=== PATIENT | male | born 1980 | race Caucasian/White ===

== ENCOUNTER 2019-07-03 08:03 | Day surgery (SDC) | payer MEDICAID ==
[~2019-07-03] VITALS: Ht 175.3 cm; Wt 63.0 kg
[2019-07-03 08:14] LABS: BASOPHILS 0.2 % (0-2); EOSINOPHILS 3.2 % (0-7); HEMATOCRIT 41.2 % (42.0-54.0); HEMOGLOBIN 14.2 g/dL (13.5-17.5); IMMATURE GRANULOCYTES 0.2 % (0-5); LYMPHOCYTES 28.3 % (15-50); MCH 30.9 pg (26.0-34.0); MCHC 34.5 g/dL (31.0-37.0); MCV 89.6 fL (80.0-100.0); MEAN PLATELET VOLUME 9.8 fL (7.4-10.4); MONOCYTES 5.8 % (2-11); NEUTROPHILS 62.3 % (40-80); PLATELET COUNT 231 10x3/uL (130-400); RDW 13.9 % (11.5-14.5); WBC 8.4 10x3/uL (4.8-10.8)
[2019-07-03 08:23] LABS: ANION GAP 12.4 mmol/L (8-16); CALCIUM 9.2 mg/dL (8.5-10.1); CARBON DIOXIDE 27.8 mmol/L (21.0-32.0); CREATININE - SERUM 1.4 mg/dL (0.6-1.3); POTASSIUM - SERUM 4.2 mmol/L (3.5-5.1)
[2019-07-03] MEDS ORDERED: DILAUDID2 MG PO (14:07)
--- NOTE | 2019-07-03 17:23 | NUR ---
1520-REC'D FROM RR,DROWSY,EASILY AROUSED, DENIES PAIN. IV PATENT TO LEFT HAND AT KVO. VSS. DRESSING TO RLQ CDI. AT BEDSIDE, CL IN EASY REACH.
--- NOTE | 2019-07-03 17:25 | NUR ---
1630-TOLERATED FULL LIQUID TRAY, AMBULATED TO RESTROOM, UNABLE TO URINATE AT THIS TIME. VSS. IV CONTINUE TO RUN KVO TO LEFT HAND.
--- NOTE | 2019-07-03 17:40 | NUR ---
1730-ATTEMPTED TO URINATE FOR 2ND TIME WITHOUT SUCCESS. ABD SOFT,NON DISTENDED. IV CONTINUE TO BE PATENT TO LEFT HAND.VSS.
--- NOTE | 2019-07-03 18:10 | NUR ---
CARE OF PATIENT ASSUMED FROM VIRI BHARDWAJ RN. PATIENT AWAKE, ALERT, NO COMPLAINTS EXCEPT WANTS TO GO HOME. PATIENT ATTEMPTING TO URINATE BUT UNABLE. BLADDER SCAN SHOWS 521 ML IN BLADDER. PATIENT ENCOURAGED TO WALK AROUND HALLS BUT STAY CLOSE TO ROOM AND SPOUSE IS TO WALK BESIDE, PATIENT AGREEABLE
--- NOTE | 2019-07-03 18:50 | NUR ---
PATIENT CALLS AND STATES HE VOIDED MODERATE AMOUNT IN TOILET. NOT MEASURED BUT PATIENT STATES THERE HE VOIDED A SHORT STREAM OF URINE TWICE INTO THE TOILET. LEFT HAND PIV DC'D WITH TIP INTACT, PATIETN DRESSING IN PERSONAL CLOTHING [id number] PATIENT DISCHARGED HOME VIA WHEELCHAIR TO PRIVATE VEHICLE WITH SPOUSE
--- NOTE | 2019-07-10 07:19 | OP ---
PATIENT NAME: ROLANDO GIBBONS MEDICAL RECORD: [id number] :84 LOCATION:D.OPS ADMISSION DATE: SURGEON: LONDON BUSTAMANTE MD DATE OF OPERATION: 07/03/2019 PREOPERATIVE DIAGNOSES: 1. Right inguinal hernia. 2. Gout. POSTOPERATIVE DIAGNOSES: 1. Right inguinal hernia. 2. Gout. PROCEDURE: Right inguinal hernia repair with medium PHS mesh. SURGEON: London Bustamante MD REPORT OF PROCEDURE: The patient's right groin was prepped and draped in sterile fashion. An oblique incision was made above the inguinal ligament. Electrocautery was used to dissect through the subcutaneous tissues down to the external oblique fascia. This fascia was opened up to the external ring using electrocautery. The spermatic cord was elevated and a Phoenix was placed around it. The ilioinguinal nerve was found and high ligated. We then can see that the patient had an indirect hernia defect which ran the entire length of the spermatic cord. We eviscerated the patient's right testicle and eventually dissected this hernia sac off of the spermatic cord with care taken not to injure the vas deferens. Once we have the sac freed up, then it was high ligated and tied off with 3-0 silk. We then opened up the inguinal floor and dissected out the preperitoneal space of Retzius. A medium PHS mesh was inserted and then sutured down on all 4 sides using multiple interrupted 0 Vicryls. The wound was then irrigated out with normal saline and care was taken to assure there was no sign of any bleeding external oblique fascia was closed with running 2-0 Vicryl, Patrizia was closed with interrupted 3-0 Vicryl and the skin was closed with running subcutaneous 5-0 Monocryl. A 10 mL of 0.25% Marcaine with epinephrine were infused into the surrounding tissues and the wound was dressed appropriately. COMPLICATIONS: None. CONDITION: Stable. ANESTHESIA: General endotracheal and local. BLOOD LOSS: Minimal. TRANSINT:[id number] Voice Confirmation ID: [id number] DOCUMENT ID: [id number] OPERATIVE REPORT [id number] ROLANDO GIBBONS LONDON BUSTAMANTE MD at 0719 CC: DEMAR SOSA MD [id number] DICTATION DATE: 07/03/19 1410 [facility]: 07/03/19 1615 [facility] [place] 07/03/19 [facility] [address] [place] [address]
== END 2019-07-03 18:58 | disposition home or self-care (01) ==
LOC: D.OPS 08:03 → D.PAN 11:30 → D.OPS 11:30 → D.PAN 11:35 → D.OPS 11:45 → D.PAN 12:30 → D.OPS 18:58
PROVIDERS: ATTEND Surgery
DX: K40.90 Unilateral inguinal hernia, without obstruction or gangrene, not specified as recurrent (principal); M10.9 Gout, unspecified; Z01.812 Encounter for preprocedural laboratory examination